=== PATIENT | female | born 1960 | race Two or more races ===

== ENCOUNTER 2017-02-21 09:20 | Observation (INO) | payer OTHER ==
[2017-02-21] VITALS (14 sets, daily range): BP systolic 114–135; BP diastolic 57–77
[~2017-02-21] VITALS: Ht 152.4 cm; Wt 99.8 kg
[~2017-02-21 09:20] MED LIST: Dexamethasone 20mg/5ml IVP ONE; ceFAZolin sod 1 GM in NS 55 ML IVPB ONE
[2017-02-21] MEDS ORDERED: LR 1000ml 1,000 ML IVLG SCH (10:14)
[2017-02-21] MEDS ORDERED: Atropine Inj 1mg/10ml Syr IV PRN (10:15)
[2017-02-21] MEDS ORDERED: Hydromorphone 0.5mg/0.5ml inj IVP PRN (10:15)
[2017-02-21] MEDS ORDERED: LORazepam Inj 2mg/ml 1ml IV PRN (10:15)
[2017-02-21] MEDS ORDERED: DiphenhydrAMINE 50mg/ml Inj IVP PRN (10:15)
[2017-02-21] MEDS ORDERED: Norco 5mg/325mg tab ORAL PRN ×2 (10:15→14:15)
[2017-02-21] MEDS ORDERED: Ketorolac 60mg Inj IV PRN (10:15)
[2017-02-21] MEDS ORDERED: Ketorolac 30mg Inj IV PRN (10:15)
[2017-02-21] MEDS ORDERED: fentaNYL 100 mcg/2 mL IV PRN (10:15)
[2017-02-21] MEDS ORDERED: Meperidine 25mg/0.5ml Inj (FOR RIGORS ONLY) IV PRN (10:15)
[2017-02-21] MEDS ORDERED: Metoclopramide 10mg/2ml Inj IVP PRN (10:15)
[2017-02-21] MEDS ORDERED: Norco 7.5mg/325mg tab ORAL PRN ×3 (10:15→14:15)
[2017-02-21] MEDS ORDERED: Midazolam 2mg/2ml Inj IVP PRN (10:15)
[2017-02-21] MEDS ORDERED: oxyCODONE HCL/Acetaminophen 5/325mg ORAL PRN (10:15)
[2017-02-21] MEDS ORDERED: NKM (10:35)
[2017-02-21] MEDS ORDERED: Surgicel 4in x 8in TOPIC ONE ×2 (10:51→11:23)
[2017-02-21] MEDS ORDERED: Thrombin 5000 units TOPIC ONE (10:51)
[2017-02-21] MEDS ORDERED: Vancomycin 1gm inj IVPB ONE (10:51)
[2017-02-21] MEDS ORDERED: Bacitracin 50000 Units Vial ONE (10:51)
[2017-02-21] MEDS ORDERED: Labetalol 5mg/ml 20ml vial IV ONE (11:00)
[2017-02-21] MEDS ORDERED: fentaNYL 100 mcg/2 mL IV ONE (11:00)
[2017-02-21] MEDS ORDERED: NS Irrig 1000ml ONE (11:00)
[2017-02-21] MEDS ORDERED: Midazolam 2mg/2ml Inj ONE (11:00)
[2017-02-21] MEDS ORDERED: Sterile Water Irrig 1000ml IRRIG ONE (11:00)
[2017-02-21] MEDS ORDERED: Lidocaine 1% MPF 10mg/ml 5ml ONE (11:00)
[2017-02-21] MEDS ORDERED: Zemuron 50mg/5ml Inj IV ONE (11:00)
[2017-02-21] MEDS ORDERED: LR 1000ml ONE (11:00)
[2017-02-21] MEDS ORDERED: Propofol 10mg/ml 100ml btl IV ONE (11:00)
[2017-02-21] MEDS ORDERED: Glycopyrrolate 0.2mg/ml 1ml Vial ONE (11:00)
[2017-02-21] MEDS ORDERED: fentaNYL 250mcg/5ml ONE (11:00)
[2017-02-21] MEDS ORDERED: Neostigmine 1mg/ml 10ml Inj ONE (11:00)
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
[2017-02-21] MEDS ORDERED: Bupivacaine w/Epi 0.5% 30ml Vial INJ ONE (11:24)
[2017-02-21] MEDS ORDERED: Acetaminophen (Non formulary) 1,000 MG/100 ML ML IV ONE (11:30)
--- NOTE | 2017-02-21 12:06 | Anethesia Preoperative Eval ---
Anesthesia Pre-op PMH/ROS General Date of Evaluation: Feb 21, 2017 Time of Evaluation: 10:59 Anesthesiologist: Ileana ASA Score: ASA 3 Mallampati Score Class I : Soft palate, uvula, fauces, pillars visible Class II: Soft palate, uvula, fauces visible Class III: Soft palate, base of uvula visible Class IV: Only hard plate visible Mallampati Classification: Class II Surgeon: Beto Diagnosis: Neck Pain Surgical Procedure: ADR C5-6, C6-7 Anesthesia History: none Family History: no anesthesia problems Allergies: Coded Allergies: No Known Allergies (Unverified , 02/20/17) Medications: see eMAR Past Medical History Other: obesity - BMI 43 PSxH Narrative: CSX4 Anesthesia Pre-op Phys. Exam Physician Exam Last Vital Signs Date Time Temp Pulse Resp B/P Pulse Ox O2 Delivery O2 Flow Rate FiO2 02/21/17 10:20 97.8 59 18 120/70 97 Room Air Constitutional: NAD Neurologic: CN 2-12 intact Cardiovascular: RRR Respiratory: CTA Gastrointestinal: S/NT/ND Airway Exam Mallampati Score: Class II MO: full ROM: limited Teeth: intact Anesthesia Pre-op A/P Risk Assessment & Plan Assessment: ASA 3 Plan: GA, BIS, Glidescope Status Change Before Surgery: No Pre-Antibiotics Dru Grams Ancef IV Given Within 1 Hr of Incision: Yes Time Given: 11:16 Junaid Tejeda MD Feb 21, 2017 12:06
--- NOTE | 2017-02-21 12:13 | Immediate Post-Op Evaluation ---
Immediate Post-Op Evalulation Immediate Post-Op Evalulation Procedure: ADR C5-6, C6-7 Date of Evaluation: Feb 21, 2017 Time of Evaluation: 14:34 IV Fluids: 1300 LR Blood Products: 0 Estimated Blood Loss: 100 Urinary Output: 0 Blood Pressure Systolic: 127 Blood Pressure Diastolic: 81 Pulse Rate: 60 Respiratory Rate: 16 O2 Sat by Pulse Oximetry: 99 Temperature (Fahrenheit): 97 Pain Score (1-10): 3 Nausea: No Vomiting: No Complications 0 Patient Status: awake, reacts, patent, extubated, none Hydration Status: adequate Dru Grams Ancef IV Given Within 1 Hr of Incision: Yes Time Given: 11:16 Junaid Tejeda MD Feb 21, 2017 12:13
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
[2017-02-21] MEDS ORDERED: Naloxone 0.4mg/ml Inj IVP PRN (14:15)
[2017-02-21] MEDS ORDERED: HYDROmorphone 1mg/ml Carpuject SUBQ PRN (14:15)
--- NOTE | 2017-02-21 15:43 | Diagnostic Imaging Report ---
Indication: PAIN, intraoperative Technique: Intraoperative images Comparison: None Findings: Initial image demonstrates a surgical tool projects at the level of the C6-7 disc. Subsequent images demonstrate placement of a disc prosthesis at C5-6 and C6-7. Impression: Intraoperative imaging, as described
--- NOTE | 2017-02-21 17:30 | Operative Note - Dictated ---
DATE OF OPERATION: 02/21/2017 SURGEON: Joseph Pérez M.D. [place] CONSULTANT: AYLA Gorman. ANESTHESIA: Dr. Ileana youngblood with intubation. ADMITTING/PREOPERATIVE DIAGNOSIS: Posttraumatic discogenic cervical neck pain. POSTOPERATIVE DIAGNOSIS: Posttraumatic discogenic cervical neck pain. OPERATIVE PROCEDURE: Artificial disc replacement C5-C6 and C6-C7. Intraoperative fluoroscopy interpreted by surgeon, high-powered microscopic dissection. SSEP monitoring. The patient's body habitus greater than 95% for height. ESTIMATED BLOOD LOSS: 50 mL. COMPLICATIONS: None. POSTOPERATIVE CONDITION: Good/stable. PROCEDURE: The patient brought to the operating room, laid in supine position. General anesthesia intubation was induced. IV antibiotics and IV Decadron were administered prior to incision time. After appropriate position, incision level was determined with a marker placed over the contralateral aspect of the skin without penetration and a cross-table radiograph being obtained. The skin was appropriately marked and sterilely prepped and draped free in usual sterile fashion. Transverse left incision was utilized sharply through dermis and epidermis. Electrocautery dissection was carried through the subcutaneous tissue to the level of the platysmas muscle. It was identified, isolated and transected in line with the incision. Blunt dissection was carried through the deep cervical and pretracheal fascia, medial to the carotid sheath and sternocleidomastoid muscle left. Midline identified. Spinal needle bent at 90 degree angles so as to avoid penetration greater than 3 millimeters in the disc space, was placed into the space. A cross-table fluoroscopic image was obtained demonstrating the correct level for further dissection. Level was marked. Needle removed. Subperiosteal dissection of the longus coli muscles. Retractors placed. C5-C6: Anterior annulotomy was performed. Diskectomy. Resection of posterior longitudinal ligament. Appropriate sizing followed with the appropriate technique for drilling hole, real cuts and insertion of the appropriately dimensioned artificial disk. Excellent alignment. The patient is stable. SSEP stable. X-rays demonstrated excellent alignment and positioning. Attention was turned to the placement of the retractor at the C6-C7 interval. Annulotomy performed followed with diskectomy, resection posterior longitudinal ligament. Insertion technique per protocol with sizing followed with holes being drilled by hand into the vertebral bodies. Real cuts followed by the insertion of the appropriately dimensioned artificial disk. Position excellent. Cross-table radiograph demonstrated excellent alignment. Wound was copiously irrigated with antibiotic-containing saline. FloSeal applied. No obvious excoriation or laceration of vital structures. Reapproximation of the platysmas muscle and subcutaneous tissue. Surgical strips transverse to the incision. Sterile bandage applied and maintained in place with tape. The patient awakened, extubated in the operating room, and transported to postoperative recovery in good stable condition. Joseph Pérez M.D. DR: SERA JOB#: [id number] CC:
[2017-02-21] MEDS: D5 1/2NS 1,000 ML IV SCH (18:39)
[2017-02-21] MEDS: ceFAZolin sod 1 GM in D5W 55 ML IV SCH (18:39)
--- NOTE | 2017-02-21 19:50 | Cardiology Progress Note ---
Assessment/Plan Assessment/Plan [id number] dvt ppx ivf pain control homw when ok with dr whitman Objective Last 24 Hour Vital Signs Date Time Temp Pulse Resp B/P Pulse Ox O2 Delivery O2 Flow Rate FiO2 02/21/17 16:45 97.2 77 18 118/72 99 Nasal Cannula 3.0 02/21/17 16:45 97.2 77 18 118/72 99 Nasal Cannula 3.0 02/21/17 15:45 96.4 73 18 123/77 98 Nasal Cannula 3.0 02/21/17 15:45 96.4 73 18 123/77 98 Nasal Cannula 3.0 02/21/17 15:15 68 18 118/63 99 Nasal Cannula 3.0 02/21/17 15:00 70 18 121/58 99 Nasal Cannula 3.0 02/21/17 14:51 69 18 129/71 99 Nasal Cannula 3.0 02/21/17 14:41 71 18 123/64 99 Nasal Cannula 3.0 02/21/17 14:35 71 18 128/66 99 Simple Mask 8.0 02/21/17 14:28 70 18 120/60 99 Simple Mask 8.0 02/21/17 14:23 97.0 74 18 114/57 100 Simple Mask 8.0 02/21/17 14:22 60 16 99 02/21/17 10:20 97.8 59 18 120/70 97 Room Air DAVID WOLF Feb 21, 2017 19:50
[2017-02-22] VITALS: BP 125/54
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
[2017-02-22] MEDS: D5 1/2NS 1,000 ML IV SCH ×2 (02:22→11:49)
[2017-02-22] MEDS: ceFAZolin sod 1 GM in D5W 55 ML IV SCH ×2 (03:11→10:26)
[2017-02-22 04:00] VITALS: BP 135/60
[2017-02-22] MEDS ORDERED: Chloraseptic Spray 20mL Bottle ORAL ONE (05:52)
[2017-02-22] MEDS ORDERED: HYDROmorphone 1mg/ml Carpuject SUBQ PRN (06:00)
[2017-02-22] MEDS ORDERED: oxyCODONE 5mg IR tab ORAL PRN ×4 (06:00→09:00)
[2017-02-22] MEDS ORDERED: Chloraseptic Spray 20mL Bottle ORAL PRN (06:00)
[2017-02-22 08:00] VITALS: BP 139/72
--- NOTE | 2017-02-22 08:15 | Progress Note ---
DATE: 02/22/2017 ACUTE PAIN MANAGEMENT PHYSICIAN PROGRESS NOTE OBJECTIVE: VITAL SIGNS: Afebrile. Pulse 63, respirations 18, blood pressure 125/54, and oxygen saturation 98% on supplemental oxygen. LABORATORY STUDIES: No interval laboratory studies. MEDICATIONS: Medication administration record reviewed. Medications include IV fluids, Protonix and p.r.n. medications include Chloraseptic spray, Mylanta, Narcan, Zofran, Compazine, Benadryl, Mylanta, scopolamine patch, Phenergan, oxycodone, and Dilaudid. I spent over 60 minutes in consultation today. I discussed the case with the surgeon, Dr. Pérez along with the nurse RN with back up. The patient has been able to ambulate out of bed to the commode. She has had been having recurrent bouts of nausea throughout the night. She complains of sore throat, as well as dry mouth. She has been tolerating liquids, but has painful swallowing. At the bedside, she has been trying to swallowing, phonating, and breathing within normal limits. Respiratory rate is within normal limits. She is afebrile and has normal oxygen saturation. The patient normally takes no medications at home. She seems to be complaining of GERD symptom exacerbation. I have asked the nurse to dose her with Protonix and Mylanta. This morning I have asked the nurse to provide a Chloraseptic spray bottle at the bedside to help with sore throat complaints. We will continue to advance her diet. The patient denies glaucoma, so I have added a scopolamine patch to help with her nausea symptoms. The Compazine was mildly helpful. The patient has been receiving Zofran with her recent pain medications. She received Dilaudid earlier and I have reduced the dose to 1 mg subcutaneously every three hours, so that perhaps there might be less nausea symptoms from this dosing. The two available doses of oxycodone she was well tolerated as the patient had used to the oxycodone at home. The patient does have a good supply of 90 tablets of oxycodone already at home, prescribed by Dr. Pérez preoperatively. The patient's will be able to assist with activities of daily living. Once the patient is more comfortable, we will be able to discharge to home. Her neck dressing appears clean and dry and there is normal postoperative swelling. At home, the patient also has a supply of prednisone which should help with postoperative swelling as well. I have added dose of Phenergan 12.5 mg for persistent nausea. Hopefully, the patient will have a better swallowing mechanics later this morning and can advance her diet and ambulation service, so that she can be apparently discharged to home. Raymon Sun M.D. DR: MOODY JOB#: [id number] CC:
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
[2017-02-22] MEDS ORDERED: Dexamethasone 20mg/5ml IVP ONE (11:30)
[2017-02-22] MEDS ORDERED: Dexamethasone 4mg/ml vial IVP ONE (11:45)
[2017-02-22 12:00] VITALS: BP 118/70
[2017-02-22] MEDS ORDERED: Tubing IV Secondary IV ONE (13:59)
[2017-02-22] MEDS ORDERED: D5 1/2NS 1000ml IV ONE (13:59)
[2017-02-26 08:28] VITALS: BP 132/75
--- NOTE | 2017-02-26 08:28 | 48 Hour Post Anesthesia Eval ---
Post Anesthesia Evaluation Procedure: ADR C5-6, C6-7 Date of Evaluation: Feb 22, 2017 Time of Evaluation: 11:25 Blood Pressure Systolic: 132 0: 75 Pulse Rate: 72 Respiratory Rate: 20 Temperature (Fahrenheit): 97.6 O2 Sat by Pulse Oximetry: 99 Airway: patent Nausea: No Vomiting: No Pain Intensity: 2 Hydration Status: adequate Cardiopulmonary Status: stable Mental Status/LOC: patient returned to baseline Follow-up Care/Observations: n/a Post-Anesthesia Complications: none Follow-up care needed: ready to discharge PRUDENCE CHAPMAN M.D. Feb 26, 2017 08:28
== END 2017-02-22 14:00 | disposition home or self-care (01) ==
LOC: SDSOVERFLO 09:20 → INTOOBSV 09:20 → 3E 14:31
DX: M50.122 Cervical disc disorder at C5-C6 level with radiculopathy (principal); G89.18 Other acute postprocedural pain; R11.0 Nausea; K21.9 Gastro-esophageal reflux disease without esophagitis; R07.0 Pain in throat; E66.01 Morbid (severe) obesity due to excess calories; Z68.41 Body mass index [BMI] 40.0-44.9, adult; Z87.891 Personal history of nicotine dependence
CPT/HCPCS: 22856; 22858; 36415; 72040; 76001; 82962; 86850; 86900; 86901; 87081; 97110; 97112; 97116; 97161; 97165; 97530; 97535; J0690; J0780; J1100; J1170; J2250; J2405; J2704; J2710; J3010; J7120; 94003; 94150; G0378; J2180